=== PATIENT | female | born 1965 | race Caucasian/White ===

== ENCOUNTER 2017-10-14 14:59 | Emergency (ER) | payer MEDICAID ==
[~2017-10-14] VITALS: Ht 165.1 cm; Wt 82.2 kg
[~2017-10-14 14:59] MED LIST: CLON1TAB PO; DULO30CA2 PO; LISI-170 PO; SIMV40TA3 PO
[2017-10-14 16:36] LABS: HEMATOCRIT 42.9 % (34.6-47.8); HEMOGLOBIN 14.5 g/dL (11.7-16.4); WHITE BLOOD COUNT 8.2 x10^3/uL (3.4-10)
[2017-10-14 16:40] LABS: BLOOD UREA NITROGEN 9 mg/dL (7-18)
[2017-10-14 16:43] LABS: ASPARTATE AMINO TRANSFERASE 14 U/L (15-37)
[2017-10-14] MEDS ORDERED: ONDANSETRON 2MG/ML, 2ML IVPush ONE ×2 (19:30→21:30)
[2017-10-14] MEDS ORDERED: HYDROmorphone 1 MG/ML, 1ML IVPush ONE (19:30)
[2017-10-14] MEDS ORDERED: ONDANSETRON 2MG/ML, 2ML ONE (19:49)
[2017-10-14] MEDS ORDERED: HYDROmorphone 1 MG/ML, 1ML ONE (19:49)
[2017-10-14] MEDS ORDERED: HYDROcodone/APAP 5/325 TABLET PO ONE (21:30)
[2017-10-14] MEDS ORDERED: ONDANSETRON ODT 4 MG ONE (21:36)
[2017-10-14] MEDS ORDERED: HYDROcodone/APAP 5/325 TABLET ONE (21:37)
[2017-10-14 21:45] VITALS: BP 181/109
== END 2017-10-14 21:50 | disposition home or self-care (01) ==
LOC: ED 21:44
DX: R10.11 Right upper quadrant pain (principal); I10 Essential (primary) hypertension
CPT/HCPCS: 36415; 76700; 80053; 81003; 83690; 85025; 96374; 96375; 99285; J1170; J2405